=== PATIENT | female | born 1935 | race Caucasian/White ===

== ENCOUNTER → 2019-08-23 12:36 | Outpatient (BNVA) | payer OTHER, SELFPAY | PROVIDERS: Referring Provider Family Medicine; Visit Provider Specialist | DX: G20 Parkinson's disease (principal) | CPT/HCPCS: 99204 ==

== ENCOUNTER → 2019-10-14 09:56 | Outpatient (BNVA) | payer OTHER, SELFPAY | PROVIDERS: Visit Provider Specialist | DX: G20 Parkinson's disease (principal) | CPT/HCPCS: 99214 ==

== ENCOUNTER → 2020-09-27 12:26 | Outpatient (BNVA) | payer OTHER, SELFPAY | PROVIDERS: Visit Provider Specialist | DX: G20 Parkinson's disease (principal) | CPT/HCPCS: 99213; 99214 ==

== ENCOUNTER → 2022-07-09 15:03 | Outpatient (BNVA) | payer MEDICARE, SELFPAY | PROVIDERS: PCP Family Medicine; Visit Provider Specialist | DX: G20 Parkinson's disease (principal) | CPT/HCPCS: 99213 ==

== ENCOUNTER → 2023-07-08 13:33 | Outpatient (BNVA) | payer MEDICARE, SELFPAY | PROVIDERS: PCP Family Medicine; Visit Provider Specialist | DX: G20.B1 Parkinson's disease with dyskinesia, without mention of fluctuations (principal) | CPT/HCPCS: 99214 ==

== ENCOUNTER → 2024-08-18 12:11 | Outpatient (BNVA) | payer MEDICARE, SELFPAY | PROVIDERS: PCP Family Medicine; Visit Provider Specialist | DX: G20.A1 Parkinson's disease without dyskinesia, without mention of fluctuations (principal) | CPT/HCPCS: 99214 ==